=== PATIENT | male | born 1955 | race Caucasian/White ===

== ENCOUNTER 2017-10-31 02:15 | Outpatient (CLI) | payer MEDICAID | END 2017-10-31 03:00 | disposition home or self-care (01) | LOC: RT.N 02:15 | PROVIDERS: ATTEND Physician Assistant Medical | DX: Z00.00 Encounter for general adult medical examination without abnormal findings (principal); Z82.49 Family history of ischemic heart disease and other diseases of the circulatory system; Z83.3 Family history of diabetes mellitus; Z87.891 Personal history of nicotine dependence; I10 Essential (primary) hypertension; R09.89 Other specified symptoms and signs involving the circulatory and respiratory systems; R01.1 Cardiac murmur, unspecified; I16.0 Hypertensive urgency | CPT/HCPCS: 93005 ==

== ENCOUNTER 2017-11-19 10:16 | Outpatient (CLI) | payer MEDICAID ==
--- NOTE | 2017-11-20 09:40 | Ultrasound Report ---
Procedure Date: 11/19/2017 Accession Number: [id number] / [id number] Procedure: US - Carotid Doppler Complete CPT Code: FULL RESULT: EXAM: CAROTID DOPPLER ULTRASOUND EXAM DATE: 11/19/2017 12:40 PM. CLINICAL HISTORY: Family history of heart disease, hypertension. COMPARISON: None. TECHNIQUE: Real-time sonographic vascular imaging was performed by the construction analyst through the carotid arterial system with a linear transducer utilizing color-flow, Doppler flow and spectral analysis. Multiple traffic representative static images were saved for review. FINDINGS: There is occlusion of the right internal carotid artery proximally at the midportion and distally. There is occlusion of the right vertebral artery. There is occlusion of the left distal internal carotid artery. There is antegrade flow in the left vertebral artery. There is occlusion of the right external carotid artery. Severe stenosis at the mid common carotid artery on the left. Right: RCCA Prox: PSV 56 cm/sec. RCCA Dist: PSV 50 cm/sec, EDV 9 cm/sec. RECA: Occluded. R Bulb: PSV 49 cm/sec, EDV 15 cm/sec. DOMINGO Prox: Occluded. DOMINGO Mid: Occluded. DOMINGO Dist: Occluded RVA: Occluded. Left: LCCA Prox: PSV 77 cm/sec. LCCA Dist: PSV 277 cm/sec, EDV 33 cm/sec. LCCA MID: PSV 376 cm/sec, EDV 47 cm/sec. LECA: PSV 91 cm/sec. L Bulb: PSV 112 cm/sec, EDV 24 cm/sec. LICA Prox: PSV 69 cm/sec, EDV 11 cm/sec. LICA Mid: PSV 68 cm/sec, EDV 11 cm/sec. LICA Dist: Occluded. LVA: PSV 73 cm/sec. LVA flow direction: Antegrade. Other: None. IMPRESSION: 1. The right internal carotid artery is occluded throughout its course. 2. The right external carotid artery is occluded. 3. The left internal carotid artery is occluded distally. 4. There is severe stenosis in the mid common carotid artery on the left. 5. Severe bilateral disease. A head and neck CTA may be of benefit to further characterize the vasculature. Findings discussed immediately with CATHERINE Prather by phone on 11/20/2017 at 9:10 AM. Validated velocity measurements with angiographic measurements and velocity criteria are extrapolated from diameter data as defined by the Society of Radiologists in Ultrasound Consensus Conference Radiology 2003; 229;340-346. RADIA The above findings were discussed with Renzo Prather by Dr. Gricel Mcdonald at 09:11 hrs on 11/20/17.
== END 2017-11-19 10:17 | disposition home or self-care (01) ==
LOC: DI 10:16
PROVIDERS: ATTEND Physician Assistant Medical
DX: I65.23 Occlusion and stenosis of bilateral carotid arteries (principal); I10 Essential (primary) hypertension; I16.0 Hypertensive urgency; R01.1 Cardiac murmur, unspecified; Z83.3 Family history of diabetes mellitus; Z87.891 Personal history of nicotine dependence; Z82.49 Family history of ischemic heart disease and other diseases of the circulatory system; I51.7 Cardiomegaly
CPT/HCPCS: 93306; 93880

== ENCOUNTER 2017-11-22 08:16 | Outpatient (CLI) | payer MEDICAID ==
[2017-11-22] MEDS ORDERED: IOPAMIDOL-300 100 ML VIAL ONE (08:42)
[2017-11-22 08:44] LABS: CREATININE 1.5 mg/dL (0.6-1.2)
[2017-11-22] MEDS ORDERED: IOPAMIDOL-300 100 ML VIAL IVP ONE (10:30)
--- NOTE | 2017-11-22 11:41 | CT Report ---
Procedure Date: 11/22/2017 Accession Number: [id number] / [id number] Procedure: CT - Head Angio CPT Code: FULL RESULT: EXAM: CT ANGIOGRAM HEAD. CT SCAN OF THE HEAD WITHOUT AND WITH CONTRAST. EXAM DATE: 11/22/2017 10:27 AM CLINICAL HISTORY: History of stroke and carotid artery occlusion. COMPARISON: None. TECHNIQUE: - CT Scan Head: Using a multidetector scanner, axial images were acquired from the foramen magnum to the skull vertex prior to and following contrast administration. - CT Angiogram: Using a multidetector scanner, high-resolution axial images were acquired from the skull base through vertex following rapid infusion of intravenous contrast. Reformats: Multiplanar MIP reformats were reconstructed. Nascet criteria used for stenosis measurement. IV Contrast: 80 mL Isovue 300. In accordance with CT protocol optimization, one or more of the following dose reduction techniques were utilized for this exam: automated exposure control, adjustment of mA and/or KV based on patient size, or use of iterative reconstructive technique. FINDINGS: Brain CT Without Contrast: Approximately 3 x 4 cm region of chronic appearing encephalomalacia and gliosis in the right frontal parietal brain consistent with old ischemic infarct. Mild generalized cerebral volume loss. No hydrocephalus, midline shift or abnormal subdural fluid collection. No evidence for acute hemorrhage. No definite CT evidence of acute ischemic cortical infarct. Amorphous white matter hypoattenuation suggests chronic microangiopathy. Mild paranasal sinus mucosal thickening. Grossly clear mastoids. No displaced skull fracture. Brain CT With Contrast: No enhancing or space-occupying mass. Head CT Angiogram: Prominent calcifications of the petrous, cavernous and paraclinoid segments of the internal carotid arteries. Patent but mildly stenotic right supraclinoid ICA. Ill-defined and attenuated luminal opacification of the right cavernous ICA. Proximal to this, the distal right ICA shows no intraluminal contrast opacification which is consistent with arterial occlusion. Mild to moderate stenosis of the distal left paraclinoid ICA, proximal to the takeoff of the left posterior communicating artery. Proximal to this, the left ICA at the skull base and as far as partially visualized in the upper neck is occluded. Nonvisualized right intradural vertebral artery. The left intradural vertebral artery shows prominent proximal segmental atherosclerotic disease with irregular calcified plaque which is associated with mild to moderate luminal stenosis. Mild luminal stenosis with atherosclerotic calcification near the junction of the distal left intradural vertebral artery and basilar artery. Minimal basilar artery irregularity without acute abnormality, filling defect or flow-limiting stenosis. At least moderate stenosis at the origins of the superior cerebellar arteries. Conventional appearing posterior inferior cerebellar artery and anterior-inferior cerebellar arteries are not identified. Mild to moderate multifocal irregularity and stenosis of posterior cerebral arteries. Posterior communicating arteries are present and patent, larger on the left than on the right. Patent anterior communicating artery. No main segment occlusion or high-grade stenosis of the anterior cerebral arteries. No high-grade stenosis or occlusion of the main proximal segments of the middle cerebral arteries. Probable mild atherosclerotic narrowing and irregularity of a few peripheral MCA branches. No evidence for aneurysm of the [place]. IMPRESSION: 1. No CT evidence for acute intracranial abnormality or enhancing mass. There are findings of a moderately large old infarct in the right frontoparietal region. 2. Bilateral internal carotid artery occlusions with collateral intracranial reconstitution. 3. Single visualized left vertebral artery distally. 4. Multifocal stenosis and atherosclerotic disease of the left vertebral artery and basilar artery. 5. Additional multifocal atherosclerotic narrowing and irregularity of multiple anterior circulation arterial segments. 6. No evidence for acute proximal segment occlusion of the anterior, middle or posterior cerebral arteries. 7. These findings do not preclude the possibility of a smaller acute ischemic infarct. RADIA
== END 2017-11-22 08:17 | disposition home or self-care (01) ==
LOC: LAB 08:16 → DI 08:17
PROVIDERS: ATTEND Physician Assistant Medical
DX: I65.23 Occlusion and stenosis of bilateral carotid arteries (principal); Z86.73 Personal history of transient ischemic attack (TIA), and cerebral infarction without residual deficits; I65.02 Occlusion and stenosis of left vertebral artery; I65.1 Occlusion and stenosis of basilar artery; I10 Essential (primary) hypertension; I67.2 Cerebral atherosclerosis
CPT/HCPCS: 36415; 70496; 82565; Q9967

== ENCOUNTER 2017-12-02 08:00 | Outpatient (CLI) | payer MEDICAID | END 2017-12-02 23:59 | LOC: LAB 08:00 | PROVIDERS: ATTEND Physician Assistant Medical | DX: Z53.9 Procedure and treatment not carried out, unspecified reason (principal) ==

== ENCOUNTER 2017-12-03 08:33 | Outpatient (CLI) | payer MEDICAID ==
[2017-12-03 08:48] LABS: BASOPHILS # (AUTO) 0.1 10^3/uL (0.0-0.1); BASOPHILS % (AUTO) 1.1 %; EOSINOPHILS # (AUTO) 0.3 10^3/uL (0.0-0.7); EOSINOPHILS % (AUTO) 3.8 %; HGB - HEMOGLOBIN 15.6 g/dL (14.0-18.0); LYMPHOCYTES # (AUTO) 1.9 10^3/uL (1.5-3.5); LYMPHOCYTES % (AUTO) 23.5 %; MEAN CORPUSCULAR HEMOGLOBIN 33.8 pg (27.0-31.0); MEAN CORPUSCULAR HGB CONC 34.4 g/dL (32.0-36.0); MEAN CORPUSCULAR VOLUME 98.4 fL (80.0-94.0); MEAN PLATELET VOLUME 8.4 fL (7.4-11.4); MONOCYTES # (AUTO) 0.9 10^3/uL (0.0-1.0); MONOCYTES % (AUTO) 10.5 %; NEUTROPHILS % (AUTO) 61.1 %; PLT - PLATELET COUNT 266 10^3/uL (130-450); RED BLOOD COUNT 4.62 10^6/uL (4.70-6.10); RED CELL DISTRIBUTION WIDTH 12.6 % (12.0-15.0); WHITE BLOOD COUNT 8.2 x10^3/uL (4.8-10.8)
[2017-12-03 09:04] LABS: HB2 TOTAL 17.3 g/dL; HEMOGLOBIN A1C 0.64 g/dL; HEMOGLOBIN A1C % 5.5 % (4.6-6.2)
[2017-12-03 09:06] LABS: ALBUMIN 4.2 g/dL (3.2-5.5); ALBUMIN/GLOBULIN RATIO 1.1 (1.0-2.2); ALKALINE PHOSPHATASE 73 IU/L (42-121); ALT ALANINE AMINOTRANSFERASE 30 IU/L (10-60); AST ASPARTATE AMINOTRANSFERASE 23 IU/L (10-42); BILIRUBIN,TOTAL 0.8 mg/dL (0.2-1.0); BUN - BLOOD UREA NITROGEN 41 mg/dL (6-20); CARBON DIOXIDE - CO2 25 mmol/L (21-32); CHLORIDE 100 mmol/L (101-111); CHOL/HDL RATIO 3.7 (<5.0); CHOLESTEROL 134 mg/dL; CREATININE 1.8 mg/dL (0.6-1.2); GFR - MDRD 38 (>89); GLUCOSE 124 mg/dL (70-100); HDL CHOLESTEROL 36 mg/dL; LDL CHOLESTEROL,CALCULATED 69 mg/dL; LDL/HDL RATIO 1.9 (<3.6); SODIUM 132 mmol/L (135-145); VLDL CHOLESTEROL 29 mg/dL
== END 2017-12-03 08:34 | disposition home or self-care (01) ==
LOC: LAB 08:33
PROVIDERS: ATTEND Physician Assistant Medical
DX: Z00.00 Encounter for general adult medical examination without abnormal findings (principal); Z82.49 Family history of ischemic heart disease and other diseases of the circulatory system; Z83.3 Family history of diabetes mellitus; Z87.891 Personal history of nicotine dependence; I10 Essential (primary) hypertension; R09.89 Other specified symptoms and signs involving the circulatory and respiratory systems; R01.1 Cardiac murmur, unspecified; I16.0 Hypertensive urgency
CPT/HCPCS: 36415; 80053; 80061; 83036; 83721; 84443; 85025

== ENCOUNTER 2017-12-05 08:00 | Outpatient (CLI) | payer MEDICAID ==
[2017-12-05 18:37] LABS: BILIRUBIN,URINE NEGATIVE (NEGATIVE); GLUCOSE, URINE (UA) NEGATIVE (NEGATIVE); KETONES,URINE (UA) NEGATIVE (NEGATIVE); LEUKOCYTE ESTERASE, URINE NEGATIVE (NEGATIVE); NITRITE,URINE NEGATIVE (NEGATIVE); OCCULT BLOOD,URINE NEGATIVE (NEGATIVE); PH,URINE 5.5 PH (5.0-7.5); PROTEIN,URINE NEGATIVE (NEGATIVE); UROBILINOGEN,URINE 0.2 (NORMAL) E.U./dL (NORMAL)
[2017-12-05 18:49] LABS: BACTERIA,URINE None Seen /HPF (None Seen); CASTS, URINE 0-2 Hyaline Casts /LPF; CLARITY,URINE CLEAR (CLEAR); RBC,URINE None Seen /HPF (0-5); SQUAMOUS EPITHELIAL CELL,UR NONE SEEN (<= Few)
== END 2017-12-05 08:01 | disposition home or self-care (01) ==
LOC: LAB.R 08:00
PROVIDERS: ATTEND Physician Assistant Medical
DX: I10 Essential (primary) hypertension (principal); R09.89 Other specified symptoms and signs involving the circulatory and respiratory systems
CPT/HCPCS: 81001; 87086

== ENCOUNTER 2017-12-25 08:00 | Outpatient (CLI) | payer MEDICAID ==
[2017-12-25 18:45] LABS: BASOPHILS # (AUTO) 0.1 10^3/uL (0.0-0.1); EOSINOPHILS # (AUTO) 0.3 10^3/uL (0.0-0.7); EOSINOPHILS % (AUTO) 2.8 %; HGB - HEMOGLOBIN 14.8 g/dL (14.0-18.0); LYMPHOCYTES # (AUTO) 2.1 10^3/uL (1.5-3.5); LYMPHOCYTES % (AUTO) 23.3 %; MEAN CORPUSCULAR HEMOGLOBIN 33.6 pg (27.0-31.0); MEAN CORPUSCULAR VOLUME 98.8 fL (80.0-94.0); MEAN PLATELET VOLUME 9.2 fL (7.4-11.4); MONOCYTES # (AUTO) 0.7 10^3/uL (0.0-1.0); MONOCYTES % (AUTO) 7.5 %; NEUTROPHILS # (AUTO) 5.9 10^3/uL (1.5-6.6); NEUTROPHILS % (AUTO) 65.4 %; PLT - PLATELET COUNT 295 10^3/uL (130-450); RED BLOOD COUNT 4.41 10^6/uL (4.70-6.10); RED CELL DISTRIBUTION WIDTH 12.7 % (12.0-15.0)
[2017-12-25 19:03] LABS: BILIRUBIN,TOTAL 0.7 mg/dL (0.2-1.0); CALCIUM 9.3 mg/dL (8.5-10.3); CREATININE 1.8 mg/dL (0.6-1.2); TOTAL PROTEIN 7.9 g/dL (6.7-8.2)
== END 2017-12-25 08:01 | disposition home or self-care (01) ==
LOC: LAB.N 08:00
PROVIDERS: ATTEND Physician Assistant Medical
DX: I12.9 Hypertensive chronic kidney disease with stage 1 through stage 4 chronic kidney disease, or unspecified chronic kidney disease (principal); N18.3 Chronic kidney disease, stage 3 (moderate); R09.89 Other specified symptoms and signs involving the circulatory and respiratory systems; I16.0 Hypertensive urgency
CPT/HCPCS: 36415; 80053; 85025

== ENCOUNTER 2017-12-31 08:40 | Outpatient (CLI) | payer MEDICAID ==
[2017-12-31 09:39] LABS: BASOPHILS # (AUTO) 0.1 10^3/uL (0.0-0.1); BASOPHILS % (AUTO) 1.4 %; EOSINOPHILS # (AUTO) 0.3 10^3/uL (0.0-0.7); EOSINOPHILS % (AUTO) 3.7 %; HGB - HEMOGLOBIN 14.9 g/dL (14.0-18.0); LYMPHOCYTES # (AUTO) 2.3 10^3/uL (1.5-3.5); LYMPHOCYTES % (AUTO) 25.5 %; MEAN CORPUSCULAR HEMOGLOBIN 33.2 pg (27.0-31.0); MEAN CORPUSCULAR HGB CONC 34.6 g/dL (32.0-36.0); MEAN CORPUSCULAR VOLUME 95.8 fL (80.0-94.0); MEAN RETIC VALUE 119.4; MONOCYTES # (AUTO) 0.8 10^3/uL (0.0-1.0); MONOCYTES % (AUTO) 9.1 %; NEUTROPHILS # (AUTO) 5.5 10^3/uL (1.5-6.6); NEUTROPHILS % (AUTO) 60.3 %; PLT - PLATELET COUNT 296 10^3/uL (130-450); RED BLOOD COUNT 4.51 10^6/uL (4.70-6.10); RED CELL DISTRIBUTION WIDTH 12.6 % (12.0-15.0); WHITE BLOOD COUNT 9.2 x10^3/uL (4.8-10.8)
== END 2017-12-31 08:41 | disposition home or self-care (01) ==
LOC: LAB 08:40
PROVIDERS: ATTEND Physician Assistant Medical
DX: D53.9 Nutritional anemia, unspecified (principal)
CPT/HCPCS: 36415; 82607; 82747; 85025; 85044

== ENCOUNTER 2018-01-01 17:43 | Outpatient (CLI) | payer MEDICAID | END 2018-01-01 17:44 | disposition home or self-care (01) | LOC: DI 17:43 | PROVIDERS: ATTEND Nurse Practitioner | DX: Z53.9 Procedure and treatment not carried out, unspecified reason (principal) ==

== ENCOUNTER 2018-05-21 14:18 | Outpatient (CLI) | payer MEDICAID ==
[2018-05-21 14:55] LABS: CALCIUM 9.4 mg/dL (8.5-10.3); CREATININE 1.9 mg/dL (0.6-1.2)
== END 2018-05-21 14:19 | disposition home or self-care (01) ==
LOC: LAB 14:18
PROVIDERS: ATTEND Physician Assistant Medical
DX: N18.3 Chronic kidney disease, stage 3 (moderate) (principal)
CPT/HCPCS: 36415; 80048

== ENCOUNTER 2018-07-30 08:00 | Outpatient (CLI) | payer MEDICAID ==
[2018-07-30 19:39] LABS: BASOPHILS # (AUTO) 0.1 10^3/uL (0.0-0.1); BASOPHILS % (AUTO) 0.8 %; EOSINOPHILS # (AUTO) 0.3 10^3/uL (0.0-0.7); HGB - HEMOGLOBIN 14.3 g/dL (14.0-18.0); LYMPHOCYTES # (AUTO) 2.7 10^3/uL (1.5-3.5); LYMPHOCYTES % (AUTO) 24.1 %; MEAN CORPUSCULAR HEMOGLOBIN 32.1 pg (27.0-31.0); MEAN CORPUSCULAR HGB CONC 32.8 g/dL (32.0-36.0); MEAN CORPUSCULAR VOLUME 97.8 fL (80.0-94.0); MEAN PLATELET VOLUME 9.7 fL (7.4-11.4); MONOCYTES # (AUTO) 0.8 10^3/uL (0.0-1.0); MONOCYTES % (AUTO) 7.1 %; NEUTROPHILS # (AUTO) 7.3 10^3/uL (1.5-6.6); PLT - PLATELET COUNT 324 10^3/uL (130-450); RED BLOOD COUNT 4.45 10^6/uL (4.70-6.10); RED CELL DISTRIBUTION WIDTH 13.4 % (12.0-15.0); WHITE BLOOD COUNT 11.3 x10^3/uL (4.8-10.8)
[2018-07-30 20:09] LABS: CALCIUM 9.2 mg/dL (8.5-10.3); CREATININE 1.6 mg/dL (0.6-1.2)
== END 2018-07-30 23:59 | disposition home or self-care (01) ==
LOC: LAB.N 08:00
PROVIDERS: ATTEND Physician Assistant Medical
DX: I12.9 Hypertensive chronic kidney disease with stage 1 through stage 4 chronic kidney disease, or unspecified chronic kidney disease (principal); N18.3 Chronic kidney disease, stage 3 (moderate)
CPT/HCPCS: 36415; 80048; 83880; 85025

== ENCOUNTER 2018-11-09 19:50 | Outpatient (CLI) | payer MEDICAID | END 2018-11-09 19:51 | disposition EMS.NT | LOC: EMS 19:50 | PROVIDERS: ATTEND Surgery | DX: R41.0 Disorientation, unspecified (principal) ==

== ENCOUNTER 2018-12-22 09:39 | Outpatient (CLI) | payer MEDICAID ==
[2018-12-22] MEDS ORDERED: GADOBUTROL 10 MMOL/10 ML VIAL ONE (10:09)
--- NOTE | 2018-12-23 06:21 | MRI Report ---
Reason: POSSIBLE CVA Procedure Date: 12/22/2018 Accession Number: [id number] / [id number] Procedure: MRI - Brain W/O CPT Code: FULL RESULT: EXAM: MRI BRAIN WITHOUT CONTRAST EXAM DATE: 12/22/2018 10:50 AM. CLINICAL HISTORY: History of stroke. History of carotid occlusion. Follow-up requested, stated clinical concern for new stroke. COMPARISON: No previous MRI. Correlation is made with CT of the brain from 11/22/2017. TECHNIQUE: Multiplanar, multisequence T1-weighted and fluid-sensitive MR sequences of the brain were performed. Sequences optimized for routine evaluation. Other: None. IV Contrast: None. FINDINGS: No restricted diffusion to suggest acute or recent ischemic infarct. There are regions of mild amorphous diffusion hyperintensity without restriction that are most consistent with T2 shine-through in the regions of postischemic gliosis. Again seen are findings of moderately large chronic infarct in the upper right frontoparietal brain with encephalomalacia and chronic-appearing gliosis. Again seen are additional findings consistent with chronic microangiopathy and mild diffuse atrophy. No mass-effect, midline shift or hydrocephalus. Near complete opacification of the left maxillary sinus. Prominent mucosal thickening. Large air-fluid level. Loss of the expected ICA skull base flow voids is consistent with known occlusions. IMPRESSION: 1. No MRI evidence for new or acute intracranial abnormality. 2. No evidence for new/acute infarct or acute hemorrhage. 3. Prominent old right frontoparietal infarct. 3. New findings of severe and potentially acute left maxillary sinusitis. RADIA
== END 2018-12-22 09:40 | disposition home or self-care (01) ==
LOC: DI 09:39
PROVIDERS: ATTEND Psychiatry & Neurology Neurology
DX: Z86.73 Personal history of transient ischemic attack (TIA), and cerebral infarction without residual deficits (principal); J32.0 Chronic maxillary sinusitis
CPT/HCPCS: 70551; A9585

== ENCOUNTER 2020-09-12 12:59 | Outpatient (CLI) | payer MEDICARE, MEDICAID ==
--- NOTE | 2020-09-12 19:02 | Ultrasound Report ---
PROCEDURE: Duplex Lwr Ext Arterial Bilat INDICATIONS: LEG CRAMPS TECHNIQUE: Color and pulse Doppler interrogation was performed of both lower extremity arterial systems, with im age documentation. COMPARISON: None FINDINGS: Right lower extremity: Common femoral artery: 102 cm/sec, with monophasic flow. Deep femoral artery: 152.2 cm/sec, with monophasic flow. Proximal superficial femoral artery: 92.3 cm/sec, with monophasic flow. Mid superficial femoral artery: 83 cm/sec, with monophasic flow. Distal superficial femoral artery: 57 cm/sec, with monophasic flow. Popliteal artery: 68 cm/sec, with monophasic flow. Posterior tibial artery: 93 cm/sec, with monophasic flow. Anterior tibial artery/dorsalis pedis: 48/6 cm/sec, with monophasic flow. Zelaya-scale imaging description: Extensive atherosclerotic plaques are seen throughout visualized rig ht lower extremity arteries with occlusion of mid to distal portion of right anterior tibial artery . Left lower extremity: Common femoral artery: 39 cm/sec, with monophasic flow. Deep femoral artery: 73 cm/sec, with monophasic flow. Proximal superficial femoral artery: 54 cm/sec, with monophasic flow. Mid superficial femoral artery: 35 cm/sec, with monophasic flow. Distal superficial femoral artery: 229 cm/sec, with monophasic flow. Popliteal artery: 28 cm/sec, with monophasic flow. Posterior tibial artery: 64 cm/sec, with monophasic flow. Anterior tibial artery/dorsalis pedis: 42/16 cm/sec, with monophasic flow. Zelaya-scale imaging description: Extensive atherosclerotic disease is seen throughout left lower extr emity arteries with occluded mid to distal left anterior tibial artery. IMPRESSION: 1. Moderate to severe atherosclerotic disease throughout visualized bilateral lower extremity arterie s. 2. Suggestion of moderate stenosis proximal to the level of bilateral common femoral arteries with mo nophasic waveforms throughout bilateral lower extremity arteries. 3. Suggestion of 50-75% stenosis involving proximal right profundus femoris artery and occlusion of r ight mid to distal anterior tibial artery. 4. 50-75% stenosis involving left proximal profundus femoris artery. 5. Less than 75% stenosis involving the left distal superficial femoral artery. 6. Occluded mid to distal left anterior tibial artery. Reviewed by: Jason Rudd MD on 09/12/2020 7:01 PM PDT Approved by: Jason Rudd MD on 09/12/2020 7:01 PM PDT Station ID: [id number]
== END 2020-09-12 13:00 | disposition home or self-care (01) ==
LOC: DI 12:59
PROVIDERS: ATTEND Internal Medicine
DX: I70.203 Unspecified atherosclerosis of native arteries of extremities, bilateral legs (principal); I70.92 Chronic total occlusion of artery of the extremities
CPT/HCPCS: 93925

== ENCOUNTER 2020-09-20 12:16 | Outpatient (CLI) | payer MEDICARE, MEDICAID ==
--- NOTE | 2020-09-20 14:31 | Ultrasound Report ---
PROCEDURE: Arterial Visceral Complete INDICATIONS: HYPERTENTION TECHNIQUE: Real time scanning was performed of both kidneys, followed by Color and pulsed Doppler in terrogation of the renal vessels. COMPARISON: None FINDINGS: Examination is limited by body habitus. Aortic peak systolic velocity: 97 cm/s. Right side: Zelaya-scale imaging: Kidney is 9.5 cm long. No hydronephrosis. No nephrolithiasis. Renal cortex is normal in echogenicity. No suspicious solid renal masses. Proximal renal artery peak systolic velocity: 219 cm/s. Mid renal artery peak systolic velocity: 156 cm/s. Distal renal artery peak systolic velocity: 85 cm/s. Renal vein: Patent, without thrombus. Peak renal/aortic ratio (RAR): 2.2. Left side: Zelaya-scale imaging: Kidney is 10.8 cm long. No hydronephrosis. No nephrolithiasis. Renal cortex i s normal in echogenicity. No suspicious solid renal masses. Proximal renal artery peak systolic velocity: 40 cm/s. Mid-renal artery peak systolic velocity: 36 cm/s. Distal renal artery peak systolic velocity: 54 cm/s. Renal vein: Patent, without thrombus. Peak renal/aortic ratio (RAR): 0.6. IMPRESSION: No evidence renal artery stenosis. Reviewed by: Leona Valera MD on 09/20/2020 2:29 PM PDT Approved by: Leona Valera MD on 09/20/2020 2:29 PM PDT Station ID: [id number]
--- NOTE | 2020-09-20 17:08 | Ultrasound Report ---
PROCEDURE: Aorta Screening INDICATIONS: HYPERTENSION TECHNIQUE: Real time scanning was performed of the aorta and iliac arteries, with image documentatio n. COMPARISON: None FINDINGS: Aorta: Proximal aortic diameter measures 3.0 x 3.1 cm. Mid-aorta measures 2.3 x 2.6 cm. Distal aor tic diameter is 2.2 x 2.5 cm. Iliac arteries: Right common iliac artery measures 1.1 cm. Left common iliac artery measures 1.2 cm . IMPRESSION: No aneurysmal dilation. Reviewed by: Rere Espino MD on 09/20/2020 5:06 PM PDT Approved by: Rere Espino MD on 09/20/2020 5:06 PM PDT Station ID: [id number]
== END 2020-09-20 12:17 | disposition home or self-care (01) ==
LOC: DI 12:16
PROVIDERS: ATTEND Internal Medicine
DX: Z13.6 Encounter for screening for cardiovascular disorders (principal); I10 Essential (primary) hypertension
CPT/HCPCS: 93975

== ENCOUNTER 2020-10-30 11:30 | Outpatient (CLI) | payer MEDICARE, MEDICAID ==
[2020-10-30 12:14] LABS: BASOPHILS # (AUTO) 0.1 10^3/uL (0.0-0.1); BASOPHILS % (AUTO) 1.2 %; EOSINOPHILS # (AUTO) 0.3 10^3/uL (0.0-0.7); HCT - HEMATOCRIT 43.7 % (42.0-52.0); HGB - HEMOGLOBIN 14.8 g/dL (14.0-18.0); MEAN CORPUSCULAR HGB CONC 33.9 g/dL (32.0-36.0); MEAN CORPUSCULAR VOLUME 97.5 fL (80.0-94.0); MEAN PLATELET VOLUME 10.4 fL (7.4-11.4); MONOCYTES # (AUTO) 0.8 10^3/uL (0.0-1.0); MONOCYTES % (AUTO) 9.6 %; NEUTROPHILS # (AUTO) 5.1 10^3/uL (1.5-6.6); NEUTROPHILS % (AUTO) 60.8 %; PLT - PLATELET COUNT 304 10^3/uL (130-450); RED BLOOD COUNT 4.48 10^6/uL (4.70-6.10); RED CELL DISTRIBUTION WIDTH 13.2 % (12.0-15.0); WHITE BLOOD COUNT 8.4 x10^3/uL (4.8-10.8)
[2020-10-30 12:23] LABS: ESTIMATED AVERAGE GLUCOSE 120 mg/dL (70-100); HEMOGLOBIN A1c% 5.8 % (4.27-6.07)
[2020-10-30 12:32] LABS: ALBUMIN 4.2 g/dL (3.2-5.5); ALBUMIN/GLOBULIN RATIO 1.1 (1.0-2.2); ALKALINE PHOSPHATASE 66 IU/L (42-121); ALT ALANINE AMINOTRANSFERASE 21 IU/L (10-60); AST ASPARTATE AMINOTRANSFERASE 16 IU/L (10-42); BILIRUBIN,TOTAL 0.6 mg/dL (0.2-1.0); BUN - BLOOD UREA NITROGEN 23 mg/dL (6-20); CALCIUM 8.6 mg/dL (8.5-10.3); CARBON DIOXIDE - CO2 25 mmol/L (21-32); CHLORIDE 101 mmol/L (101-111); CHOLESTEROL 228 mg/dL; CREATININE 1.6 mg/dL (0.6-1.2); GFR - MDRD 44 (>89); GLUCOSE 107 mg/dL (70-100); HDL CHOLESTEROL 38 mg/dL; LDL CHOLESTEROL,CALCULATED 152 mg/dL; POTASSIUM 4.6 mmol/L (3.5-5.0); SODIUM 134 mmol/L (135-145); TOTAL PROTEIN 7.9 g/dL (6.7-8.2); TRIGLYCERIDES 189 mg/dL; VLDL CHOLESTEROL 38 mg/dL
[2020-10-30 12:43] LABS: THYROID STIMULATING HORMONE 1.66 uIU/mL (0.34-5.60)
[2020-10-30 13:40] LABS: CREATININE,URINE 97.1 mg/dL; MICROALBUM/CREATININE RATIO,UR 87.5 ug/mg (<30.0); MICROALBUMIN,URINE 8.5 mg/dL (0-300.0)
== END 2020-10-30 11:31 | disposition home or self-care (01) ==
LOC: LAB 11:30
PROVIDERS: ATTEND Internal Medicine
DX: I10 Essential (primary) hypertension (principal); Z83.3 Family history of diabetes mellitus; F32.9 Major depressive disorder, single episode, unspecified
CPT/HCPCS: 36415; 80053; 80061; 82043; 82088; 82570; 83036; 83721; 84244; 84443; 85025

== ENCOUNTER 2021-12-08 11:57 | Outpatient (CLI) | payer MEDICARE, MEDICAID ==
[2021-12-08 12:09] LABS: BASOPHILS # (AUTO) 0.1 10^3/uL (0.0-0.1); BASOPHILS % (AUTO) 1.5 %; EOSINOPHILS # (AUTO) 0.4 10^3/uL (0.0-0.7); EOSINOPHILS % (AUTO) 4.9 %; HCT - HEMATOCRIT 46.5 % (42.0-52.0); HGB - HEMOGLOBIN 16.1 g/dL (14.0-18.0); LYMPHOCYTES # (AUTO) 1.7 10^3/uL (1.5-3.5); LYMPHOCYTES % (AUTO) 20.8 %; MEAN CORPUSCULAR HEMOGLOBIN 31.2 pg (27.0-31.0); MEAN CORPUSCULAR HGB CONC 34.6 g/dL (32.0-36.0); MEAN CORPUSCULAR VOLUME 90.1 fL (80.0-94.0); MEAN PLATELET VOLUME 10.6 fL (7.4-11.4); MONOCYTES # (AUTO) 0.8 10^3/uL (0.0-1.0); MONOCYTES % (AUTO) 10.2 %; NEUTROPHILS % (AUTO) 62.1 %; PLT - PLATELET COUNT 303 10^3/uL (130-450); RED BLOOD COUNT 5.16 10^6/uL (4.70-6.10); RED CELL DISTRIBUTION WIDTH 12.5 % (12.0-15.0)
[2021-12-08 12:30] LABS: ALBUMIN 4.3 g/dL (3.2-5.5); ALBUMIN/GLOBULIN RATIO 1.1 (1.0-2.2); ALKALINE PHOSPHATASE 88 IU/L (42-121); ALT ALANINE AMINOTRANSFERASE 14 IU/L (10-60); AST ASPARTATE AMINOTRANSFERASE 16 IU/L (10-42); BILIRUBIN,TOTAL 0.6 mg/dL (0.2-1.0); BUN - BLOOD UREA NITROGEN 20 mg/dL (6-20); CALCIUM 9.3 mg/dL (8.5-10.3); CARBON DIOXIDE - CO2 22 mmol/L (21-32); CHLORIDE 105 mmol/L (101-111); CHOL/HDL RATIO 3.5 (<5.0); CHOLESTEROL 142 mg/dL; CREATININE 1.7 mg/dL (0.6-1.2); GFR - MDRD 41 (>89); GLUCOSE 128 mg/dL (70-100); HDL CHOLESTEROL 41 mg/dL; LDL CHOLESTEROL,CALCULATED 75 mg/dL; LDL/HDL RATIO 1.8 (<3.6); POTASSIUM 4.3 mmol/L (3.5-5.0); SODIUM 136 mmol/L (135-145); TOTAL PROTEIN 8.1 g/dL (6.7-8.2); TRIGLYCERIDES 130 mg/dL; VLDL CHOLESTEROL 26 mg/dL
[2021-12-08 12:41] LABS: ESTIMATED AVERAGE GLUCOSE 143 mg/dL (70-100); HEMOGLOBIN A1c% 6.6 % (4.27-6.07)
[2021-12-08 12:42] LABS: THYROID STIMULATING HORMONE 2.16 uIU/mL (0.34-5.60)
== END 2021-12-08 11:58 | disposition home or self-care (01) ==
LOC: LAB 11:57
PROVIDERS: ATTEND Internal Medicine
DX: I12.9 Hypertensive chronic kidney disease with stage 1 through stage 4 chronic kidney disease, or unspecified chronic kidney disease (principal); N18.32 Chronic kidney disease, stage 3b; R73.9 Hyperglycemia, unspecified; Z12.5 Encounter for screening for malignant neoplasm of prostate
CPT/HCPCS: 36415; 80053; 80061; 83036; 84443; 85025; G0103; 83721; 84153

== ENCOUNTER 2022-10-10 14:14 | Outpatient (CLI) | payer MEDICARE, MEDICAID ==
[2022-10-10 15:02] LABS: ALBUMIN 4.3 g/dL (3.2-5.5); ALBUMIN/GLOBULIN RATIO 1.2 (1.0-2.2); BILIRUBIN,TOTAL 0.8 mg/dL (0.2-1.0); CALCIUM 9.5 mg/dL (8.5-10.3); CREATININE 1.5 mg/dL (0.6-1.2); POTASSIUM 5.2 mmol/L (3.5-5.0); TOTAL PROTEIN 7.9 g/dL (6.7-8.2)
[2022-10-10 20:32] LABS: ESTIMATED AVERAGE GLUCOSE 128 mg/dL (70-100); HEMOGLOBIN A1c% 6.1 % (4.27-6.07)
== END 2022-10-10 14:15 | disposition home or self-care (01) ==
LOC: LAB 14:14
PROVIDERS: ATTEND Internal Medicine
DX: E11.65 Type 2 diabetes mellitus with hyperglycemia (principal)
CPT/HCPCS: 36415; 80053; 82043; 82570; 83036

== ENCOUNTER 2023-06-17 11:30 | Outpatient (CLI) | payer MEDICARE, MEDICAID ==
[2023-06-17 12:02] LABS: BASOPHILS # (AUTO) 0.1 10^3/uL (0.0-0.1); BASOPHILS % (AUTO) 1.4 %; EOSINOPHILS # (AUTO) 0.3 10^3/uL (0.0-0.7); EOSINOPHILS % (AUTO) 4.3 %; HCT - HEMATOCRIT 43.7 % (42.0-52.0); HGB - HEMOGLOBIN 14.4 g/dL (14.0-18.0); LYMPHOCYTES # (AUTO) 1.7 10^3/uL (1.5-3.5); LYMPHOCYTES % (AUTO) 21.3 %; MEAN CORPUSCULAR HEMOGLOBIN 31.7 pg (27.0-31.0); MEAN CORPUSCULAR VOLUME 96.3 fL (80.0-94.0); MEAN PLATELET VOLUME 11.1 fL (7.4-11.4); MONOCYTES # (AUTO) 0.7 10^3/uL (0.0-1.0); NEUTROPHILS % (AUTO) 63.6 %; PLT - PLATELET COUNT 279 10^3/uL (130-450); RED BLOOD COUNT 4.54 10^6/uL (4.70-6.10); RED CELL DISTRIBUTION WIDTH 12.7 % (12.0-15.0); WHITE BLOOD COUNT 7.9 x10^3/uL (4.8-10.8)
[2023-06-17 12:16] LABS: ALBUMIN 4.4 g/dL (3.2-5.5); ALBUMIN/GLOBULIN RATIO 1.5 (1.0-2.2); ALKALINE PHOSPHATASE 92 IU/L (42-121); ALT ALANINE AMINOTRANSFERASE 13 IU/L (10-60); AST ASPARTATE AMINOTRANSFERASE 12 IU/L (10-42); BILIRUBIN,TOTAL 0.5 mg/dL (0.2-1.0); BUN - BLOOD UREA NITROGEN 25 mg/dL (6-20); CALCIUM 9.6 mg/dL (8.5-10.3); CARBON DIOXIDE - CO2 29 mmol/L (21-32); CHLORIDE 101 mmol/L (101-111); CHOL/HDL RATIO 3.5 (<5.0); CHOLESTEROL 115 mg/dL; CREATININE 1.8 mg/dL (0.6-1.3); GFR - MDRD 38 (>89); GLUCOSE 106 mg/dL (74-104); HDL CHOLESTEROL 33 mg/dL; LDL CHOLESTEROL,CALCULATED 42 mg/dL; LDL/HDL RATIO 1.3 (<3.6); POTASSIUM 4.4 mmol/L (3.5-4.5); SODIUM 137 mmol/L (135-145); TOTAL PROTEIN 7.4 g/dL (6.4-8.9); TRIGLYCERIDES 202 mg/dL (48-352); VLDL CHOLESTEROL 40 mg/dL
[2023-06-17 12:28] LABS: THYROID STIMULATING HORMONE 2.26 uIU/mL (0.34-5.60)
[2023-06-17 12:38] LABS: ESTIMATED AVERAGE GLUCOSE 120 mg/dL (70-100); HEMOGLOBIN A1c% 5.8 % (4.27-6.07)
== END 2023-06-17 11:31 | disposition home or self-care (01) ==
LOC: LAB 11:30
PROVIDERS: ATTEND Internal Medicine
DX: E11.65 Type 2 diabetes mellitus with hyperglycemia (principal); I10 Essential (primary) hypertension; I73.9 Peripheral vascular disease, unspecified; Z12.5 Encounter for screening for malignant neoplasm of prostate; F32.A Depression, unspecified
CPT/HCPCS: 36415; 80053; 80061; 83036; 84443; 85025; G0103; 82043; 82570; 83721; 84153